=== PATIENT | female | born 1970 | race Caucasian/White ===

== ENCOUNTER → 2022-12-03 | Outpatient (CLI) | payer OTHER | END | disposition home or self-care (01) | LOC: RAH 08:43 | PROVIDERS: ATTEND Physician Assistant Medical | DX: M47.813 Spondylosis without myelopathy or radiculopathy, cervicothoracic region (principal); M48.03 Spinal stenosis, cervicothoracic region; M50.30 Other cervical disc degeneration, unspecified cervical region; M50.223 Other cervical disc displacement at C6-C7 level; M50.31 Other cervical disc degeneration, high cervical region | CPT/HCPCS: 72141 ==

== ENCOUNTER 2023-01-17 19:00 | Observation (INO) | payer OTHER ==
[~2023-01-17] VITALS: Ht 167.6 cm; Wt 102.4 kg
[2023-01-17 11:37] LABS: BASOPHILS % (AUTO) 1.8 % (0.0-5.0); EOSINOPHILS # (AUTO) 0.35 K/uL (0.00-0.70); EOSINOPHILS % (AUTO) 6.3 % (0.0-8.0); HEMATOCRIT 41.5 % (36-48); IMMATURE GRANULOCYTE ABSOLUTE 0.03 K/uL (0-1); LYMPHOCYTES # (AUTO) 1.7 K/uL (1.0-4.8); LYMPHOCYTES % (AUTO) 30.9 % (21.0-51.0); MEAN CORPUSCULAR HEMOGLOBIN 30.7 pg (27.0-33.0); MEAN CORPUSCULAR HGB CONC 33.3 g/dL (32.0-36.0); MEAN CORPUSCULAR VOLUME 92.4 fL (79-99); MONOCYTES # (AUTO) 0.5 K/uL (0.1-1.0); MONOCYTES % (AUTO) 8.8 % (3.0-13.0); NEUTROPHILS # (AUTO) 2.9 K/uL (1.8-7.7); NEUTROPHILS % (AUTO) 51.7 % (40.0-77.0); PLATELET COUNT (AUTO) 220 K/uL (130-400); RED BLOOD CELL COUNT(AUTO) 4.49 MIL/uL (4.00-5.50); RED CELL DISTRIBUTION WIDTH 12.1 % (11.0-15.5); WHITE BLOOD COUNT (AUTO) 5.6 K/uL (4.8-10.8)
[2023-01-17 11:46] LABS: CREATININE 0.9 mg/dL (0.5-1.5); POTASSIUM 4.1 mmol/L (3.5-5.1)
[2023-01-17 12:04] VITALS: BP 157/79; PULSE 87; RESP 16
[2023-01-19] MEDS ORDERED: ATOR10TA69 PO (15:37)
[2023-01-19] MEDS ORDERED: VITAMIN D PO (15:37)
[2023-01-19] MEDS ORDERED: ACET-2079 PO (15:37)
[2023-01-19] MEDS ORDERED: FLUO20CA36 PO (15:37)
[2023-01-19] MEDS ORDERED: CYCL5TAB PO (15:37)
[2023-01-20] VITALS (23 sets, daily range): BP systolic 111–156; BP diastolic 61–91; PULSE 83–105; RESP 13–19; O2SAT 97
[2023-01-20] MEDS ORDERED: LIDOCAINE 2%-EPI PF 30 ML+BUPIVACAINE/PF 0.25% 30ML /60ML SYR IJ SCH ×4 (06:00→07:00)
[2023-01-20] MEDS ORDERED: CEFAZOLIN SODIUM 2 GM VIAL ONE (06:18)
[2023-01-20] MEDS ORDERED: LACTATED RINGERS 1000ML 1,000 ML IV ONE (06:18)
[2023-01-20] MEDS ORDERED: CEFAZOLIN SODIUM 1 GM VIAL ONE ×3 (06:37→11:24)
[2023-01-20] MEDS ORDERED: THROMBIN-JMI 20000 UNIT KIT TP ONE (06:38)
[2023-01-20] MEDS ORDERED: SUCCINYLCHOLINE CHLORIDE 20 MG/ML 10 ML VIAL ONE (06:50)
[2023-01-20] MEDS ORDERED: LIDOCAINE PF 100MG/5ML (2%) SYRINGE 5ML ONE (06:50)
[2023-01-20] MEDS ORDERED: NEOSTIGMINE 5MG/5ML SYR IV ONE (06:51)
[2023-01-20] MEDS ORDERED: ROCURONIUM 10MG/1ML SYR 10 MG/ML ML ONE ×2 (06:51→08:13)
[2023-01-20] MEDS ORDERED: MIDAZOLAM HCL 1 MG/ML 2ML VIAL ONE (06:51)
[2023-01-20] MEDS ORDERED: PROPOFOL 10 MG/ML 20ML VIAL IV ONE (06:51)
[2023-01-20] MEDS ORDERED: DEXAMETHASONE SOD PHOSPHATE 10MG/ML 1ML VIAL ONE ×2 (06:51→06:54)
[2023-01-20] MEDS ORDERED: ONDANSETRON 4MG INJ ONE ×3 (06:51→12:40)
[2023-01-20] MEDS ORDERED: GLYCOPYRROLATE 1 MG/5 ML SYRINGE ONE (06:51)
[2023-01-20] MEDS ORDERED: FENTANYL CITRATE PF 50 MCG/1 ML 2ML VIAL ONE (06:52)
[2023-01-20] MEDS ORDERED: PHENYLEPHRINE HCL 10 MG/ML 1ML VIAL IV ONE (06:59)
[2023-01-20] MEDS ORDERED: LIDOCAINE HCL 2% JELLY 5 ML ONE (07:32)
[2023-01-20] MEDS ORDERED: CEFAZOLIN SODIUM 2 GM VIAL IVPB ONE ×3 (07:49→11:25)
[2023-01-20] MEDS ORDERED: FENTANYL CITRATE PF 50 MCG/1 ML 5ML AMP IV ONE (08:03)
[2023-01-20] MEDS ORDERED: THROMBIN 20000 UNITS/VIAL POWDER TP ONE ×2 (08:18)
[2023-01-20] MEDS ORDERED: CEFAZOLIN SODIUM 1 GM VIAL IRRIG ONE ×2 (08:18)
[2023-01-20] MEDS ORDERED: MINERAL OIL 30 ML UDCUP ONE (08:44)
[2023-01-20] MEDS ORDERED: GENTAMICIN SULFATE 80 MG/2 ML VIAL ONE (10:46)
[2023-01-20] MEDS ORDERED: ESMOLOL HCL 10 MG/ML 10 ML VIAL ONE ×2 (11:40→11:43)
[2023-01-20] MEDS ORDERED: HYDROCODONE/ACETAMINOPHEN 5/325 MG TAB PO PRN (12:00)
[2023-01-20] MEDS ORDERED: PROMETHAZINE HCL 25 MG/ML 1ML AMPULE IM PRN (12:00)
[2023-01-20] MEDS ORDERED: CEFAZOLIN SODIUM 1 GM VIAL IVPB SCH (12:00)
[2023-01-20] MEDS ORDERED: 0.9%NACL 10ML VIAL IVP PRN (12:00)
[2023-01-20] MEDS: LACTATED RINGERS 1000ML 1,000 ML IV SCH ×2 (12:00→14:27)
[2023-01-20] MEDS ORDERED: MEPERIDINE-PF 25 MG/ML SYG ONE (12:39)
[2023-01-20] MEDS: DEXAMETHASONE SOD PHOSPHATE 4 MG/ML 1ML VIAL IVP SCH ×3 (13:39→23:22)
[2023-01-20] MEDS: MORPHINE 2 MG SYG IVP PRN ×2 (13:41→16:26)
[2023-01-20] MEDS: CYCLOBENZAPRINE HCL 10 MG TABLET PO SCH ×2 (14:22→20:49)
[2023-01-20] MEDS: ACETAMINOPHEN WITH CODEINE 1 TAB TAB PO SCH ×2 (14:22→20:49)
[2023-01-20] MEDS ORDERED: IBUP-2076 PO (17:16)
[2023-01-20] MEDS: IBUPROFEN 200 MG TAB PO PRN ×2 (18:09→22:11)
[2023-01-20] MEDS ORDERED: ATORVASTATIN 10 MG TABLET PO SCH (21:00)
[2023-01-21 04:00] VITALS: BP 115/72; PULSE 97; RESP 20
[2023-01-21] MEDS: DEXAMETHASONE SOD PHOSPHATE 4 MG/ML 1ML VIAL IVP SCH (04:56)
[2023-01-21] MEDS: IBUPROFEN 200 MG TAB PO PRN (05:14)
[2023-01-21 08:00] VITALS: BP 127/77; PULSE 87; RESP 19
[2023-01-21] MEDS: CYCLOBENZAPRINE HCL 10 MG TABLET PO SCH (09:00)
[2023-01-21] MEDS: ACETAMINOPHEN WITH CODEINE 1 TAB TAB PO SCH (09:00)
[2023-01-21] MEDS ORDERED: FLUOXETINE HCL 20 MG CAPSULE PO SCH (09:00)
[2023-01-27] MEDS ORDERED: ERGOCALCIFEROL (VITAMIN D2) 50,000 UNIT CAPSULE PO SCH (09:00)
== END 2023-01-21 10:55 | disposition home or self-care (01) ==
LOC: DAHIP 01-20 06:00 → 4CH 01-20 13:00 → EDSTATUS 01-20 16:00
PROVIDERS: ADMIT Neurological Surgery; ATTEND Neurological Surgery
DX: M50.123 Cervical disc disorder at C6-C7 level with radiculopathy (principal); M48.02 Spinal stenosis, cervical region; M25.78 Osteophyte, vertebrae; I10 Essential (primary) hypertension; E66.9 Obesity, unspecified; G47.33 Obstructive sleep apnea (adult) (pediatric); Z98.1 Arthrodesis status; Z79.899 Other long term (current) drug therapy; Z68.36 Body mass index [BMI] 36.0-36.9, adult
CPT/HCPCS: 80048; 84703; 85025; 36415; 71045; 93005; 22551; 22552; 22853 ×2; 20930; 96376 ×2; 96365; 96375; 72020; A6260; G0378 ×22; G0379; A4663 ×2; A4344; J7120; J3010 ×2; J0690 ×8; J3490 ×5; J1100 ×5; J2710; J0330; J2270 ×2; J0665; J2001; J1580; J2250; J2704; J2405 ×3; J2175; J2371; A4649; C1776; A4215 ×2; A4223 ×2; A4222 ×2; A4221 ×2; A4600 ×2; A4510 ×2

== ENCOUNTER → 2023-02-17 | Outpatient (CLI) | payer OTHER ==
[~2023-02-17] MED LIST: ACET-2079 PO; ATOR10TA69 PO; CYCL5TAB PO; FLUO20CA36 PO; IBUP-2076 PO; VITAMIN D PO
== END | disposition home or self-care (01) ==
LOC: RAH 08:33
PROVIDERS: ATTEND Neurological Surgery
DX: M43.22 Fusion of spine, cervical region (principal); M47.812 Spondylosis without myelopathy or radiculopathy, cervical region
CPT/HCPCS: 72040